=== PATIENT | female | born 1955 | race African-American/Black ===

== ENCOUNTER 2017-03-16 19:58 | Emergency (ER) | payer SELFPAY ==
[~2017-03-16] VITALS: Ht 165.1 cm; Wt 138.5 kg
[2017-03-16 20:10] VITALS: BP 165/85; PULSE 101; RESP 24; TEMP 98.1; O2SAT 99
--- NOTE | 2017-03-16 20:10 | PD ---
HPI Chief Complaint: fall, multiple contusions Time Seen by Provider: 20:00 Travel History International Travel<30 days: No Contact w/Intl Traveler<30days: No Traveled to known affect area: No History of Present Illness HPI The patient is a 62-year-old female that tripped on a curb tonight at about 7: 20 PM and fell on her right side, hurting her right elbow and both knees. She also has some slight pain in the pelvis. She denies any head trauma or loss of consciousness. This was a non-syncopal fall. PFSH Past Medical History Asthma: Yes Diminished Hearing: No Respiratory: Yes (ASTHMA) Immunizations Current: Yes Migraines: Yes Menopausal: Yes Past Surgical History Section: Yes Social History Alcohol Use: No Tobacco Use: No Substance Use: No Allergies-Medications (Allergen,Severity, Reaction): Coded Allergies: iodine (Unverified Allergy, Severe, Anaphylaxis, 03/16/17) potassium iodide (Unverified Allergy, Severe, Anaphylaxis, 03/16/17) povidone-iodine (Unverified Allergy, Severe, Anaphylaxis, 03/16/17) shellfish derived (Unverified Allergy, Severe, Anaphylaxis, 03/16/17) sodium iodide (Unverified Allergy, Severe, Anaphylaxis, 03/16/17) sodium iodide (Unverified Allergy, Severe, Anaphylaxis, 03/16/17) bee venom protein (honey bee) (Unverified Allergy, Unknown, 03/16/17) Reported Meds & Prescriptions Reported Meds & Active Scripts Active Flexeril (Cyclobenzaprine HCl) 10 Mg Tab 10 Mg PO TID Tramadol (Tramadol HCl) 50 Mg Tab 50 Mg PO Q4H PRN Review of Systems Except as stated in HPI: all other systems reviewed are Neg Physical Exam Narrative GENERAL: The patient is alert, oriented 3, obese and slight apparent distress with her bilateral knee pain and slight pain on the right elbow. Her vital signs SKIN: Focused skin assessment warm/dry. HEAD: Atraumatic. Normocephalic. EYES: Pupils equal and round. No scleral icterus. No injection or drainage. ENT: No nasal bleeding or discharge. Mucous membranes pink and moist. NECK: Trachea midline. No JVD. CARDIOVASCULAR: Regular rate and rhythm. No murmur appreciated. RESPIRATORY: No accessory muscle use. Clear to auscultation. Breath sounds equal bilaterally. GASTROINTESTINAL: Abdomen soft, non-tender, nondistended. Hepatic and splenic margins not palpable. MUSCULOSKELETAL: No obvious deformities. No clubbing. No cyanosis. No edema. There is diffuse tenderness over both patellae but no bony deformity present. Drawer, collaterals, Jen all show normal intact testing. There is a slight abrasion over the right elbow and tenderness over the right elbow without any deformity. Good capillary refill and pinprick is present distally on both feet/ toes and right hand/fingers. The patient appears to move her hips normally bilaterally but has some slight tenderness bilaterally over the thigh/hips. No deformity is noted over the hips. NEUROLOGICAL: Awake and alert. No obvious cranial nerve deficits. Motor grossly within normal limits. Normal speech. PSYCHIATRIC: Appropriate mood and affect; insight and judgment normal. Data Data Last Documented VS Vital Signs Date Time Temp Pulse Resp B/P (MAP) Pulse Ox O2 Delivery O2 Flow Rate FiO2 03/16/17 21:21 98.1 84 16 176/78 (110) 100 Room Air Orders Orders Elbow, Complete (4 Vws) (03/16/17 20:00) Knee, Complete (4vws) (03/16/17 20:00) Knee, Complete (4vws) (03/16/17 20:00) Pelvis, Ap Only (Routine) (03/16/17 20:00) Ketorolac Inj (Toradol Inj) (03/16/17 21:30) Orphenadrine Inj (Norflex Inj) (03/16/17 21:30) MDM Medical Decision Making Medical Screen Exam Complete: Yes Emergency Medical Condition: Yes Medical Record Reviewed: Yes Interpretation(s) The right elbow shows no fracture. The left and right knees show osteoarthritis but no fracture or joint effusion. The pelvis shows no fracture. Differential Diagnosis Multiple strains and contusion, fracture pelvis, fracture knee, fracture elbow Narrative Course The patient has multiple strains and contusions. There is no evidence of fracture on x-ray or even clinically. Diagnosis Primary Impression: Contusion, multiple sites Additional Instructions: Rest and time is probably the best thing for you. It may hurt worse tomorrow than it is today. We will give you Percocet for pain and Flexeril as a muscle relaxant. Med/Other Pt SpecificInfo: Prescription(s) given Scripts Cyclobenzaprine (Flexeril) 10 Mg Tab 10 MG PO TID for Muscle Spasm, #30 TAB 0 Refills Prov: Jose Hilliard MD 03/16/17 Tramadol (Tramadol) 50 Mg Tab 50 MG PO Q4H Y for PAIN, #30 TAB 0 Refills Prov: Jose Hilliard MD 03/16/17 Disposition: 01 DISCHARGE HOME Condition: Stable Jose Hilliard MD Mar 16, 2017 20:10
[2017-03-16 21:20] VITALS: BP 176/78; PULSE 84; RESP 16; O2SAT 100
[2017-03-16 21:21] VITALS: BP 176/78; PULSE 84; RESP 16; TEMP 98.1; O2SAT 100
[2017-03-16] MEDS ORDERED: KETOROLAC TROMETHAMINE 60 MG/2 ML (IM) VIAL IM ONE (21:30)
[2017-03-16] MEDS ORDERED: ORPHENADRINE INJ 60 MG/2 ML AMP IM ONE (21:30)
--- NOTE | 2017-03-16 21:32 | RADRPT ---
EXAM DATE/TIME: 03/16/2017 20:20 [facility] COMPARISON: No previous studies available for comparison. INDICATIONS : Right elbow pain post fall. MEDICAL HISTORY : None. SURGICAL HISTORY : None. ENCOUNTER: Initial ACUITY: 1 day PAIN SCORE: 7/10 LOCATION: Right wrist FINDINGS: Multiple view examination of the right elbow demonstrates no soft tissue swelling, joint effusion, or fracture. The osseous structures are in normal alignment. Bony mineralization is normal. CONCLUSION: Intact right elbow. Gil Díaz MD on March 16, 2017 at 21:30 Board Certified Radiologist. This report was verified electronically.
--- NOTE | 2017-03-16 21:32 | RADRPT ---
EXAM DATE/TIME: 03/16/2017 20:20 [facility] COMPARISON: No previous studies available for comparison. INDICATIONS : Right knee pain post fall. MEDICAL HISTORY : None. SURGICAL HISTORY : None. ENCOUNTER: Initial ACUITY: 1 day PAIN SCORE: 7/10 LOCATION: Right knee FINDINGS: The right knee is intact. [id number] medial and patellofemoral Vandana osteoarthritis noted. The re is no perceptible joint effusion. CONCLUSION: Osteoarthritis. No fracture, subluxation or significant joint effusion. Gil Díaz MD on March 16, 2017 at 21:29 Board Certified Radiologist. This report was verified electronically.
--- NOTE | 2017-03-16 21:33 | RADRPT ---
EXAM DATE/TIME: 03/16/2017 20:20 [facility] COMPARISON: No previous studies available for comparison. INDICATIONS : Left knee pain post fall. MEDICAL HISTORY : None. SURGICAL HISTORY : None. ENCOUNTER: Initial ACUITY: 1 day PAIN SCORE: 7/10 LOCATION: Left knee FINDINGS: There is moderate medial and patellofemoral compartment osteoarthritis. No fracture demonstrated. No perceptible joint effusion. CONCLUSION: Intact left knee. Moderate osteoarthritis. Gil Díaz MD on March 16, 2017 at 21:31 Board Certified Radiologist. This report was verified electronically.
--- NOTE | 2017-03-16 21:34 | RADRPT ---
EXAM DATE/TIME: 03/16/2017 20:20 [facility] COMPARISON: No previous studies available for comparison. INDICATIONS : Pelvic pain post fall. MEDICAL HISTORY : None. SURGICAL HISTORY : None. ENCOUNTER: Initial ACUITY: 1 day PAIN SCORE: 7/10 LOCATION: Pelvis FINDINGS: A single frontal view of the pelvis demonstrates no evidence of fracture. The bony pelvic ring is in tact. Bony mineralization is normal. The soft tissues are intact. Mild osteoarthritis seen in both hips. CONCLUSION: Intact pelvis. Gil Díaz MD on March 16, 2017 at 21:32 Board Certified Radiologist. This report was verified electronically.
[2017-03-16] MEDS ORDERED: CYCL10TA PO (22:06)
[2017-03-16] MEDS ORDERED: TRAM50TA PO (22:06)
[2017-03-16 22:15] VITALS: BP 164/82
[2017-03-16 22:16] VITALS: RESP 16
== END 2017-03-16 22:37 | disposition home or self-care (01) ==
LOC: PHED 19:58
DX: T14.8XXA Other injury of unspecified body region, initial encounter (principal); M25.561 Pain in right knee; M25.562 Pain in left knee; M25.521 Pain in right elbow; R10.2 Pelvic and perineal pain; W10.1XXA Fall (on)(from) sidewalk curb, initial encounter
CPT/HCPCS: 72170; 73080; 73564; 96372; 99284; E0113; J1885; J2360